=== PATIENT | male | born 1990 | race African-American/Black ===

== ENCOUNTER 2017-05-09 09:35 | Emergency (ER) | payer MEDICAID ==
[~2017-05-09] VITALS: Ht 180.3 cm; Wt 75.0 kg
[~2017-05-09 09:35] MED LIST: NO MEDS
[2017-05-09] MEDS ORDERED: ALBUTEROL (0.083%) 2.5MG/3ML NEB HHN STA ×2 (09:52)
[2017-05-09] MEDS ORDERED: PREDNISONE 20MG TABLET PO STA (09:52)
[2017-05-09 10:26] LABS: BASOPHILS % 0.9 % (0.0-2.0); EOSINOPHILS % 0.4 % (0.0-5.0); HEMATOCRIT. 45.5 % (42.0-52.0); HEMOGLOBIN. 15.4 g/dL (14.0-18.0); LYMPHOCYTES % 18.2 % (20.0-50.0); MEAN CORPUSCULAR HEMOGLOBIN 32.6 pg (28.0-32.0); MEAN PLATELET VOLUME 8.1 fl (7.4-10.4); MONOCYTES % 10.9 % (2.0-8.0); NEUTROPHILS % 69.6 % (40.0-76.0); PLATELET 220 x1000/uL (130-400); RED BLOOD CELL COUNT 4.73 mill/uL (4.7-6.1); RED CELL DISTRIBUTION WIDTH 14.6 % (11.6-14.6)
[2017-05-09 10:28] LABS: CHLORIDE 102 mEq/L (98-107)
[2017-05-09 10:39] LABS: CARBON DIOXIDE 31 mEq/L (21-32)
[2017-05-09] MEDS ORDERED: ACETAMINOPHEN 325MG TABLET PO ONE (10:45)
[2017-05-09 12:35] VITALS: BP 149/76
== END 2017-05-09 12:39 | disposition home or self-care (01) ==
LOC: ER 09:43
DX: J45.901 Unspecified asthma with (acute) exacerbation (principal); R10.31 Right lower quadrant pain; R04.2 Hemoptysis; F31.9 Bipolar disorder, unspecified; F14.10 Cocaine abuse, uncomplicated; F17.290 Nicotine dependence, other tobacco product, uncomplicated; Z88.6 Allergy status to analgesic agent
CPT/HCPCS: 36415; 71010; 74000; 80053; 85025; 93005; 94644; 99285; J7512; J7611; Z7610

== ENCOUNTER 2017-07-14 23:59 | Emergency (ER) | payer MEDICAID | END 2017-07-15 01:57 | disposition left against medical advice (07) | LOC: ER 07-15 00:55 | DX: M79.606 Pain in leg, unspecified (principal); Z53.21 Procedure and treatment not carried out due to patient leaving prior to being seen by health care provider ==

== ENCOUNTER 2018-03-08 04:33 | Emergency (ER) | payer MEDICAID ==
[~2018-03-08] VITALS: Ht 177.8 cm; Wt 82.0 kg
[2018-03-08 07:34] LABS: HEMATOCRIT. 49.1 % (42.0-52.0); HEMOGLOBIN. 16.6 g/dL (14.0-18.0); MEAN CORPUSCULAR HEMOGLOBIN 34.3 pg (28.0-32.0); MEAN CORPUSCULAR VOLUME 101.5 fL (80.0-94.0); MEAN PLATELET VOLUME 8.1 fl (7.4-10.4); PLATELET 216 x1000/uL (130-400); RED BLOOD CELL COUNT 4.84 mill/uL (4.7-6.1); RED CELL DISTRIBUTION WIDTH 14.7 % (11.6-14.6)
[2018-03-08 07:41] LABS: PROTHROMBIN TIME 10.2 sec (9.1-11.1)
[2018-03-08 07:47] LABS: CHLORIDE 103 mEq/L (98-107)
[2018-03-08 08:00] VITALS: BP 106/57
[2018-03-08 08:11] LABS: PLATELET ESTIMATE NORMAL
== END 2018-03-08 08:33 | disposition home or self-care (01) ==
LOC: ER 05:06
DX: R05 Cough (principal); R04.2 Hemoptysis; F17.200 Nicotine dependence, unspecified, uncomplicated; Z88.6 Allergy status to analgesic agent
CPT/HCPCS: 36415; 71045; 80053; 85025; 85610; 87804; 99285; Z7610

== ENCOUNTER 2018-08-10 02:48 | Emergency (ER) | payer MEDICAID ==
[~2018-08-10] VITALS: Ht 172.7 cm; Wt 73.0 kg
[2018-08-10 02:50] VITALS: BP 104/68
== END 2018-08-10 08:53 | disposition left against medical advice (07) ==
LOC: ER 02:48
DX: R11.2 Nausea with vomiting, unspecified (principal); R10.30 Lower abdominal pain, unspecified; Z53.21 Procedure and treatment not carried out due to patient leaving prior to being seen by health care provider